=== PATIENT | female | born 1970 | race Caucasian/White ===

== ENCOUNTER → 2016-11-03 | Outpatient (CLI) | payer OTHER ==
[~2016-11-03] MED LIST: Feosol PO; IRON45 MG PO; ZYRTEC10 MG PO
== END | disposition home or self-care (01) ==
LOC: CDC 10:19
DX: R94.31 Abnormal electrocardiogram [ECG] [EKG] (principal)
CPT/HCPCS: 93000

== ENCOUNTER 2016-11-13 10:58 | Day surgery (SDC) | payer OTHER ==
[~2016-11-13] VITALS: Ht 165.1 cm; Wt 133.8 kg
[~2016-11-13 10:58] MED LIST changes: +CHEWABLE-VITE1 EACH PO; +MICROZIDE12.5 M1 PO
[2016-11-13 11:27] VITALS: BP 167/98
[2016-11-13] MEDS ORDERED: PERCOCET 5/31 TABLET PO (13:52)
[2016-11-13 14:54] VITALS: BP 127/67
[2016-11-13 15:56] VITALS: BP 123/60
== END 2016-11-13 16:04 | disposition home or self-care (01) ==
LOC: SDC
PROC: 0WUF4JZ Supplement Abdominal Wall with Synthetic Substitute, Percutaneous Endoscopic Approach (ICD-10-PCS; principal; 2016-11-13)
DX: K42.0 Umbilical hernia with obstruction, without gangrene (principal); E66.01 Morbid (severe) obesity due to excess calories; Z68.42 Body mass index [BMI] 45.0-49.9, adult; I10 Essential (primary) hypertension; K21.9 Gastro-esophageal reflux disease without esophagitis; R73.03 Prediabetes; Z80.3 Family history of malignant neoplasm of breast; Z83.49 Family history of other endocrine, nutritional and metabolic diseases; Z83.3 Family history of diabetes mellitus; Z82.49 Family history of ischemic heart disease and other diseases of the circulatory system; Z80.6 Family history of leukemia
CPT/HCPCS: C1781; J0330; J0690; J1100; J1885; J2405; J2710; J3010